=== PATIENT | male | born 1945 | race Caucasian/White ===

== ENCOUNTER → 2018-08-10 | Outpatient (CLI) | payer OTHER ==
--- NOTE | 2018-08-11 08:08 | EXE ---
[facility] [place] [address] STRESS ECHOCARDIOGRAM Name: JONNYMINERVA HERNANDEZ Room #: REG [facility]#: [id number] ������������� Admission: 08/10/18 ������������� Attend Phys: Ap Murillo Discharge: ��� ������������� ��� Date of : 47 Date of Service: 08/11/18 0807 �� Report #: [id number] �������� ��������������������������������������������[id number] THIS REPORT FOR: //name// APPROVED REPORT Study performed: 08/10/2018 13:49:57 Exam: Stress Echocardiogram Indication: SOB, elevated calcium score Patient Location: Echo lab Stress Nurse: Jennifer Muller RN Status: routine Ht: 5 ft 6 in HR: 83 bpm BP: 142/65 mmHg Rhythm: NSR Medical History Medical History: HTN, Hyperlipidemia Allergies: No known drug allergies Cardiac Risk Factors: FHX of CAD Procedure The patient underwent an Exercise Stress Test using the Francisco Javier Protocol. Blood pressure, heart rate, and EKG were monitored. An Echocardiogram was performed by durable medical equipment technician in four stages in quad fashion. At peak stress, four selected images were obtained and placed side by side with resting images for comparison. Stress Test Details Stress Test: Exercise stress testing was performed using a Francisco Javier protocol. HR Resting HR: 78 bpm Max Heart Rate (APMHR): 148 bpm Max HR Achieved: 169 bpm Target HR (85% APMHR): 125 bpm % of APMHR: 114 Recovery HR: 100 bpm HR response to stress: Normal HR response to stress BP Resting BP: 142/65 mmHg Max BP: 220/74 mmHg Recovery BP: 154/70 mmHg BP response to stress: Normal blood pressure response to stress. [facility] [address] [address] STRESS ECHOCARDIOGRAM Name: MINERVA FULLER Room #: REG CL [facility]#: [id number] ������������� Admission: 08/10/18 ������������� Attend Phys: Ap Murillo Discharge: ��� ������������� ��� Date of : 47 Date of Service: 08/11/18 0807 �� Report #: [id number] �������� ��������������������������������������������[id number] ECG Resting ECG: Sinus Rhythm Stress ECG: Sinus Rhythm Maximum ST Deviation: 0.5 mm Arrhythmia: VPC Recovery ECG: Sinus Rhythm Recovery ST Change: Normal Recovery ST Deviation: 0 mm Recovery Arrhythmia: None Clinical Reason for Termination: Completed protocol, Maximal effort Stress Symptoms: Fatigue Exercise duration: 9 min 32 sec Highest Stage Achieved: Stage 4: 4.2 mph at 16% grade. Exercise capacity: 11.80 METs Overall Exercise Capacity for Age: Good Angina Score: None Stress ECG Conclusion Clinical: Non-ischemic ECG: Non-ischemic Herrera Treadmill Score is 6.5 which is Low risk. Pre-Stress Echo The resting Echocardiogram showed normal left ventricular contractility with an estimated Ejection Fraction of about 60-65%. Post-Stress Echo The stress Echocardiogram showed normal left ventricular contractility with an estimated Ejection Fraction of about >70%. Normal augmentation of wall motion in all segments on post stress images. Conclusion Clinical Response: Non-ischemic Exercise Capacity: Average Stress ECG Response: Non-ischemic Stress Echo Images: Non-ischemic The left ventricle is normal in size and wall thickness in both the rest and stress images. Normal stress echocardiogram with maximal exercise stress. 1. low risk study Other Information [facility] [place] [address] [place] [address] STRESS ECHOCARDIOGRAM Name: MINERVA FULLER Room #: REG [facility]#: [id number] ������������� Admission: 08/10/18 ������������� Attend Phys: Ap Murillo Discharge: ��� ������������� ��� Date of : 47 Date of Service: 08/11/18806 �� Report #: [id number] �������� ��������������������������������������������[id number] Study Quality: Adequate <Conclusion> The left ventricle is normal in size and wall thickness in both the rest and stress images. Normal stress echocardiogram with maximal exercise stress. 1. low risk study ��������������������������������������������� <ELECTRONICALLY SIGNED> ���������������������������������������� By: Andres Bajwa MD ��������������������������������������������� 08/11/18806 6 6 Andres Bajwa MD /INF
== END ==
LOC: CV 06:28
DX: R06.02 Shortness of breath (principal); I25.10 Atherosclerotic heart disease of native coronary artery without angina pectoris

== ENCOUNTER → 2019-07-09 | Outpatient (CLI) | payer OTHER | LOC: SJCVC 08:39 | PROVIDERS: ATTEND Internal Medicine Cardiovascular Disease | DX: E78.2 Mixed hyperlipidemia (principal) ==

== ENCOUNTER → 2020-07-10 | Outpatient (CLI) | payer OTHER | LOC: SJCVC 12:58 | PROVIDERS: ATTEND Internal Medicine Cardiovascular Disease | DX: R07.9 Chest pain, unspecified (principal); I10 Essential (primary) hypertension; I47.1 Supraventricular tachycardia; E78.00 Pure hypercholesterolemia, unspecified; I25.10 Atherosclerotic heart disease of native coronary artery without angina pectoris; E78.5 Hyperlipidemia, unspecified; N40.0 Benign prostatic hyperplasia without lower urinary tract symptoms; Z79.82 Long term (current) use of aspirin; Z79.899 Other long term (current) drug therapy; Z87.440 Personal history of urinary (tract) infections; Z72.89 Other problems related to lifestyle ==

== ENCOUNTER → 2020-07-24 | Outpatient (CLI) | payer OTHER | LOC: SJCVCIMAG 07:37 | PROVIDERS: ATTEND Internal Medicine Cardiovascular Disease | DX: R00.0 Tachycardia, unspecified (principal); I49.3 Ventricular premature depolarization; R06.00 Dyspnea, unspecified; R53.83 Other fatigue; E78.5 Hyperlipidemia, unspecified; R94.31 Abnormal electrocardiogram [ECG] [EKG]; I10 Essential (primary) hypertension; I25.10 Atherosclerotic heart disease of native coronary artery without angina pectoris; Z79.82 Long term (current) use of aspirin; Z79.899 Other long term (current) drug therapy ==

== ENCOUNTER → 2020-09-30 | Outpatient (CLI) | payer OTHER | LOC: SJCVC 10:52 | PROVIDERS: ATTEND Internal Medicine Cardiovascular Disease | DX: I48.0 Paroxysmal atrial fibrillation (principal); I25.10 Atherosclerotic heart disease of native coronary artery without angina pectoris; E78.5 Hyperlipidemia, unspecified; R00.2 Palpitations; N40.0 Benign prostatic hyperplasia without lower urinary tract symptoms; K64.9 Unspecified hemorrhoids; I83.93 Asymptomatic varicose veins of bilateral lower extremities; Z79.82 Long term (current) use of aspirin; Z79.899 Other long term (current) drug therapy; Z86.03 Personal history of neoplasm of uncertain behavior; Z87.440 Personal history of urinary (tract) infections; Z82.49 Family history of ischemic heart disease and other diseases of the circulatory system ==

== ENCOUNTER → 2020-10-08 | Outpatient (CLI) | payer OTHER ==
--- NOTE | ~2020-10-08 | P ---
[address] [address] PROCEDURE REPORT Name: MINERVA FULLER Room #: REG [facility]#: [id number] Admission: 10/08/20 Attend Phys: Ap Murillo MD Discharge: Date of : 47 Report #: [id number] THIS REPORT FOR: cc: Lewis Lockett Gregory DO Couchonnal, Luis F. MD ~ DOC #: [id number] Ap Murillo MD DATE OF SERVICE: 10/08/2020 PROCEDURE: Implantable loop recorder insertion. PREOPERATIVE DIAGNOSIS: Atrial fibrillation. POSTOPERATIVE DIAGNOSIS: Atrial fibrillation. DESCRIPTION OF PROCEDURE: The patient underwent informed consent. He was prepped and draped in a standard fashion. I injected lidocaine at the incision site. Incision was made. Device was injected, tested and found to be functioning normally. A single suture was performed. Surgical glue and a dressing was placed. There were no procedural-related complications. The implanted device was a Contorion model number LNQ11, serial number [id number]. CONCLUSION: Successful implantation of a loop recorder. MD QUINTEN Blank/ECHO By: 1027 07 Ap Murillo MD /nt
== END | disposition home or self-care (01) ==
LOC: CATH 07:01
PROVIDERS: ATTEND Internal Medicine Cardiovascular Disease
DX: I48.91 Unspecified atrial fibrillation (principal)

== ENCOUNTER → 2021-01-13 | Outpatient (CLI) | payer OTHER | LOC: SJCVC 12:42 | PROVIDERS: ATTEND Internal Medicine Cardiovascular Disease | DX: I48.0 Paroxysmal atrial fibrillation (principal); I25.10 Atherosclerotic heart disease of native coronary artery without angina pectoris; E78.5 Hyperlipidemia, unspecified; Z79.899 Other long term (current) drug therapy; Z86.16 Personal history of COVID-19; Z72.89 Other problems related to lifestyle ==